=== PATIENT | female | born 1975 | race Caucasian/White ===

== ENCOUNTER 2019-04-09 07:58 | Emergency (ER) | payer OTHER ==
[2019-04-09 08:12] VITALS: BP 131/86
[2019-04-09] MEDS: Meclizine 12.5 MG Tab PO ONE (08:43)
--- NOTE | 2019-04-09 08:54 | EDM.PDOC ---
ED HPI GENERAL MEDICAL PROBLEM - General Chief Complaint: General Stated Complaint: POSSIBLE VERTIGO Time Seen by Provider: 04/09/19 08:20 Source of Information: Reports: Patient History Limitations: Reports: No Limitations - History of Present Illness INITIAL COMMENTS - FREE TEXT/NARRATIVE: According to patient she claims she started to have dizzy episodes 2 days ago and has got worse. She claims she cannot move without feeling dizzy. Patient claims any movement of her body make the room spin and then she starts to feels nauseous and upset stomach. Has not had any vomiting. Symptoms has got worse today. Pt does claims she gets short episodes sometimes when she is on the boat, and applies some OTC motion sickness patch. But, this time it is not helping. Pt claims she has violet feeling pressure in her head. Also she had stomach and sick last week, which resolved without any problems. No ear ache or fullness. No ringing in the ears or drainage. No fever or chills. Onset Date: 04/07/19 Duration: Getting Worse, Intermittent Improves with: Reports: Rest Worsens with: Reports: Movement Associated Symptoms: Denies: Confusion, Chest Pain, Cough, Diaphoresis, Fever/ Chills, Headaches, Nausea/Vomiting, Rash, Seizure, Shortness of Breath, Syncope , Weakness - Related Data Allergies Allergy/AdvReac Type Severity Reaction Status Date / Time No Known Allergies Allergy Verified 04/09/19 08:12 Past Medical History [employer] History: Reports: Neurological History: Reports: Other (See Below) Other Neuro History: motion sickness after having children Social & Family History - Family History Family Medical History: Noncontributory - Tobacco Use Smoking Status *Q: Never Smoker - Caffeine Use Caffeine Use: Reports: Coffee - Recreational Drug Use Recreational Drug Use: No ED ROS GENERAL - Review of Systems Review Of Systems: See Below Constitutional: Denies: Fever, Chills, Weakness HEENT: Denies: Ear Pain, Rhinitis, Throat Pain Respiratory: Denies: Shortness of Breath, Pleuritic Chest Pain, Cough, Sputum Cardiovascular: Denies: Chest Pain, Lightheadedness GI/Abdominal: Reports: Nausea. Denies: Abdominal Pain, Constipation, Diarrhea, Vomiting : Denies: Flank Pain, Frequency Musculoskeletal: Denies: Joint Pain, Joint Swelling Skin: Denies: Bruising, Pruritis, Rash Neurological: Reports: Dizziness. Denies: Confusion, Headache, Numbness, Tingling, Weakness, Change in Speech, Gait Disturbance ED EXAM, GENERAL - Physical Exam Exam: See Below Exam Limited By: No Limitations General Appearance: Alert, WD/WN, No Apparent Distress Eye Exam: Bilateral Eye: EOMI, PERRL Ears: Normal External Exam, Normal Canal, Hearing Grossly Normal, Normal TMs Ear Exam: Bilateral Ear: Auricle Normal, Canal Normal, TM normal Nose: Normal Inspection, Normal Mucosa, No Blood Throat/Mouth: Normal Inspection, Normal Lips, Normal Teeth, Normal Gums, Normal Oropharynx, Normal Voice, No Airway Compromise Head: Atraumatic, Normocephalic Neck: Normal Inspection, Supple, Non-Tender, Full Range of Motion, Other (On head maneuvering at 30 degrees patient does have elicitable vertigo with nystagmus which lasts for less then 10 seconds and resovles. ) Respiratory/Chest: No Respiratory Distress, Lungs Clear, Normal Breath Sounds, No Accessory Muscle Use, Chest Non-Tender Cardiovascular: Normal Peripheral Pulses, Regular Rate, Rhythm, No Edema, No Gallop, No JVD, No Murmur, No Rub Course - Vital Signs Text/Narrative:: Pt appears to have acute labyrinthitis. Her CT head is negative and her CBC is normal. This does appear like viral labyrinthitis, which is the most common type. Reassured , and mechanism discussed with patient. Advised rest. Avoid frequent movement of the head. Advised to keep the eyes closed when making any turn. No driving until the symptoms resolves. Will take 3-5 days and gradually improve. Started her on meclizine 25mg 3 times daily for 5 days. Pt is feeling better after resting and meclizine. Nausea has resolved and her vertigo has improved.Followup if symptoms worsen. Last Recorded V/S: Last Vital Signs Temp 97.6 F 04/09/19 08:05 Pulse 77 04/09/19 08:05 Resp 20 04/09/19 08:05 BP 131/86 04/09/19 08:05 Pulse Ox 100 04/09/19 08:05 - Orders/Labs/Meds Orders: Active Orders 24 hr Category Date Time Status Head wo Cont [CT] Stat Exams 04/09/19 08:44 Taken Labs: Laboratory Tests 04/09/19 Range/Units 08:50 WBC 6.7 (4.0-11.0) K/uL RBC 4.73 (3.80-5.80) M/uL Hgb 13.9 (11.5-16.5) g/dL Hct 40.9 (37.0-47.0) % MCV 87 (76-96) fL MCH 29.4 (27.0-32.0) pg MCHC 34.0 (31.0-35.0) g/dL RDW 12.2 (11.0-16.0) % Plt Count 206 (150-500) K/uL MPV 9.2 (6.0-10.0) fL Neut % (Auto) 72.5 H (45.0-70.0) % Lymph % (Auto) 16.9 L (20.0-40.0) % [place] % (Auto) 9.1 (3.0-10.0) % Eos % (Auto) 1.2 (1.0-5.0) % Baso % (Auto) 0.3 (0.0-0.5) % Neut # (Auto) 4.88 (2.00-7.50) K/uL Lymph # (Auto) 1.14 L (1.50-4.00) K/uL [place] # (Auto) 0.61 (0.20-0.80) K/uL Eos # (Auto) 0.08 (0.04-0.40) K/uL Baso # (Auto) 0.02 (0.02-0.10) K/uL Meds: Medications Discontinued Medications Generic Name Dose Route Start Last Admin Trade Name Richard PRN Reason Stop Dose Admin Meclizine HCl Confirm 04/09/19 08:49 04/09/19 09:06 Antivert Administered 04/09/19 08:50 Not Given Dose 25 mg .ROUTE .STK-MED ONE Meclizine HCl 25 mg 04/09/19 08:40 04/09/19 08:43 Antivert PO 04/09/19 08:41 25 mg ONETIME ONE Administration Departure - Departure Time of Disposition: 10:00 Disposition: Home, Self-Care 01 Condition: Fair Clinical Impression: Viral labyrinthitis - Discharge Information *PRESCRIPTION DRUG MONITORING PROGRAM REVIEWED*: Not Applicable *COPY OF PRESCRIPTION DRUG MONITORING REPORT IN PATIENT HILARIO: Not Applicable Instructions: Meclizine tablets or capsules, Labyrinthitis Referrals: PCP,None [Primary Care Provider] - Forms: ED Department Discharge Additional Instructions: Discharge home. Lots of rest for the next 3 days, keep eyes closed when you need to get up or change head position. Open eyes slowly. No boat rides No driving when you are feeling this way. Meclizine 25mg by mouth 3 times a day. Follow up as needed with your primary provider. Call or return to the ER if you have any questions or concerns. - Problem List & Annotations (1) Viral labyrinthitis SNOMED Code(s): 310463401 Code(s): H83.09 - LABYRINTHITIS, UNSPECIFIED EAR Status: Acute - Problem List Review Problem List Initiated/Reviewed/Updated: Yes - My Orders Last 24 Hours: My Active Orders 04/09/19 08:44 Head wo Cont [CT] Stat - Assessment/Plan Last 24 Hours: My Active Orders 04/09/19 08:44 Head wo Cont [CT] Stat Assessment:: Viral Labyrinthitis Plan: Pt appears to have acute labyrinthitis. Her CT head is negative and her CBC is normal. This does appear like viral labyrinthitis, which is the most common type. Reassured , and mechanism discussed with patient. Advised rest. Avoid frequent movement of the head. Advised to keep the eyes closed when making any turn. No driving until the symptoms resolves. Will take 3-5 days and gradually improve. Started her on meclizine 25mg 3 times daily for 5 days. Pt is feeling better after resting and meclizine. Nausea has resolved and her vertigo has improved.Followup if symptoms worsen.
--- NOTE | 2019-04-09 13:05 | CT ---
DATE OF SERVICE: 04/09/2019 CLINICAL DATA: Vertigo Unenhanced brain CT: Multislice axial acquisition was performed. No priors. No masses or mass effect. No intracranial hemorrhage. No evidence of acute or subacute infarct. There is a 4 mm round calcification in the thalamus on the right. This is most likely related to prior infectious or inflammatory process. No osseous abnormalities. There is a small fluid density lesion in the right ethmoid sinuses consistent with a small retention cyst. Otherwise negative. MTDD
== END 2019-04-09 10:00 | disposition home or self-care (01) ==
LOC: LB.ED 07:58
DX: H83.09 Labyrinthitis, unspecified ear (principal); B97.89 Other viral agents as the cause of diseases classified elsewhere
CPT/HCPCS: 36415; 70450; 85025; 99284-25; A9270-GY